=== PATIENT | male | born 1975 | race Hispanic/Latino ===

== ENCOUNTER 2019-09-04 09:48 | Emergency (ER) | payer SELFPAY ==
[2019-09-04] MEDS ORDERED: DiphenhydrAMINE HCL 50 MG/ML VIAL ONE (10:15)
== END 2019-09-04 11:57 | disposition home or self-care (01) ==
LOC: EDH 09:48
DX: F41.9 Anxiety disorder, unspecified (principal); Z87.891 Personal history of nicotine dependence
CPT/HCPCS: 93005; 96372; 99283; J1200